=== PATIENT | male | born 1940 | race Caucasian/White ===

== ENCOUNTER 2017-06-25 18:04 | Inpatient (IN) ==
[~2017-06-25 18:04] MED LIST: PROMETHAZINE 25 MG/1 ML VIAL IM PRN
[2017-06-25] MEDS ORDERED: ACETAMINOPHEN 325 MG TABLET PO PRN (20:24)
[2017-06-25] MEDS ORDERED: ONDANSETRON 4 MG TABLET PO PRN (20:24)
[2017-06-25] MEDS ORDERED: diphenhydrAMINE 50 MG/1 ML VIAL IV PRN (20:24)
[2017-06-25] MEDS ORDERED: SODIUM CHLORIDE 0.9% 1,000 ML IV PRN (20:24)
[2017-06-25] MEDS ORDERED: ONDANSETRON 4 MG/2 ML VIAL IV PRN (20:24)
[2017-06-25] MEDS: SODIUM CHLORIDE 0.9% 1,000 ML IV SCH (21:36)
[2017-06-25] MEDS: HYDROmorphone 2 MG/1 ML VIAL IV PRN (21:52)
[2017-06-25] MEDS: DOCUSATE SODIUM 100 MG CAPSULE PO SCH (21:53)
[2017-06-25] MEDS: CARVEDILOL 25 MG TABLET PO SCH (21:53)
[2017-06-25] MEDS: FAMOTIDINE INJ 40 MG in SODIUM CHLORIDE 0.9% 100 ML IV SCH (21:53)
[2017-06-25 23:23] LABS: Amorphous Crystals,Urine Occasional /HPF (Few); Apearance,Urine CLOUDY (Clear); Bacteria,Urine Few /HPF (Few); Bilirubin,Urine Negative (Negative); Blood, Urine Large mg/dL (Negative); Glucose,Urine (UA) Negative (Negative); Ketones,Urine 5 mg/dL (Negative); Nitrite,Urine Negative (Negative); Protein,Urine 100 MG/DL; RBC,Urine 917 /HPF (0-4); Urine Color Amber (Yellow); Urine Specific Gravity 1.013 (1.001-1.035); Urine Urobilinogen < 2.0 EU/DL (0.2-1.0); WBC,Urine 26 /HPF (0-6)
[2017-06-26] MEDS: HYDROmorphone 2 MG/1 ML VIAL IV PRN ×4 (02:13→17:07)
[2017-06-26] MEDS: SODIUM CHLORIDE 0.9% 1,000 ML IV SCH ×6 (05:50→21:21)
[2017-06-26 05:53] LABS: Basophils # 0.1 10*3/uL (0.0-0.2); Basophils % 0.6 % (0.0-0.8); Eosinophils # 0.1 10*3/uL (0.0-0.87); Eosinophils % 1.4 % (0.00-10.9); Hematocrit 31.2 VOL% (42.0-52.0); Hemoglobin 10.7 GM/DL (14.0-18.0); Immature Granulocytes % 0.6 %; Immature Granulocytes Absolute 0.05 #; Lymphocytes # 3.4 10*3/uL (1.4-4.0); Lymphocytes % 37.4 % (21.2-54.2); Mean Corpuscular HGB Conc 34.3 GM/DL (32-36); Mean Corpuscular Hemoglobin 32 PG (27-34); Mean Corpuscular Volume 94.5 FL (87-102); Mean Platelet Volume 11.1 FL (9.6-12.0); Monocytes # 1.3 10*3/uL (0.11-0.8); Monocytes % 14.4 % (1.7-12.7); Neutrophils # 4.1 10*3/uL (1.4-7.4); Neutrophils % 45.6 % (38.7-73.9); Platelet Count 128 T/CUMM (130-400); Red Cell Distribution Width 14.1 % (9.3-17.3); White Blood Count 9.1 T/CUMM (4-12)
[2017-06-26 06:26] LABS: Calcium 7.8 MG/DL (8.5-10.1); Osmolality,Calculated 283.3 MOS/KG (273-304); Potassium 4.7 MMOL/L (3.5-5.1)
[2017-06-26] MEDS ORDERED: MAGNESIUM SULF RIDER 2 GM in PREMIX 1 EACH IV ONE (08:47)
[2017-06-26] MEDS ORDERED: MAGNESIUM SULF RIDER 50 ML IV ONE (08:56)
[2017-06-26] MEDS: CARVEDILOL 25 MG TABLET PO SCH ×2 (09:10→17:08)
[2017-06-26] MEDS: amLODIPine 5 MG TABLET PO SCH (09:10)
[2017-06-26] MEDS: DOCUSATE SODIUM 100 MG CAPSULE PO SCH ×2 (09:10→20:16)
[2017-06-26 13:00] LABS: Basophils # 0.1 10*3/uL (0.0-0.2); Basophils % 0.5 % (0.0-0.8); Eosinophils # 0.2 10*3/uL (0.0-0.87); Eosinophils % 2.1 % (0.00-10.9); Hematocrit 32.7 VOL% (42.0-52.0); Hemoglobin 10.9 GM/DL (14.0-18.0); Immature Granulocytes % 0.5 %; Immature Granulocytes Absolute 0.05 #; Lymphocytes # 2.9 10*3/uL (1.4-4.0); Lymphocytes % 29.7 % (21.2-54.2); Mean Corpuscular HGB Conc 33.3 GM/DL (32-36); Mean Corpuscular Hemoglobin 32 PG (27-34); Mean Corpuscular Volume 96.5 FL (87-102); Mean Platelet Volume 11.1 FL (9.6-12.0); Monocytes # 1.2 10*3/uL (0.11-0.8); Monocytes % 12.3 % (1.7-12.7); Neutrophils # 5.3 10*3/uL (1.4-7.4); Neutrophils % 54.9 % (38.7-73.9); Platelet Count 125 T/CUMM (130-400); Red Blood Count 3.39 MC/CUMM (3.8-5.5); Red Cell Distribution Width 14.4 % (9.3-17.3); White Blood Count 9.6 T/CUMM (4-12)
[2017-06-26] MEDS: FAMOTIDINE INJ 40 MG in SODIUM CHLORIDE 0.9% 100 ML IV SCH (20:17)
[2017-06-27] MEDS: HYDROmorphone 2 MG/1 ML VIAL IV PRN ×4 (02:18→19:40)
[2017-06-27] MEDS: SODIUM CHLORIDE 0.9% 1,000 ML IV SCH (05:37)
[2017-06-27 06:40] LABS: Basophils # 0.1 10*3/uL (0.0-0.2); Basophils % 0.6 % (0.0-0.8); Eosinophils # 0.3 10*3/uL (0.0-0.87); Eosinophils % 3.1 % (0.00-10.9); Hematocrit 30.8 VOL% (42.0-52.0); Hemoglobin 10.1 GM/DL (14.0-18.0); Immature Granulocytes % 0.4 %; Immature Granulocytes Absolute 0.03 #; Lymphocytes # 2.3 10*3/uL (1.4-4.0); Lymphocytes % 27.3 % (21.2-54.2); Mean Corpuscular HGB Conc 32.8 GM/DL (32-36); Mean Corpuscular Hemoglobin 32 PG (27-34); Mean Corpuscular Volume 96.6 FL (87-102); Mean Platelet Volume 10.9 FL (9.6-12.0); Monocytes # 1.2 10*3/uL (0.11-0.8); Monocytes % 13.8 % (1.7-12.7); Neutrophils # 4.6 10*3/uL (1.4-7.4); Neutrophils % 54.8 % (38.7-73.9); Platelet Count 127 T/CUMM (130-400); Red Blood Count 3.19 MC/CUMM (3.8-5.5); Red Cell Distribution Width 14.2 % (9.3-17.3); White Blood Count 8.4 T/CUMM (4-12)
[2017-06-27 07:07] LABS: Calcium 7.6 MG/DL (8.5-10.1); Potassium 4.2 MMOL/L (3.5-5.1)
[2017-06-27] MEDS: amLODIPine 5 MG TABLET PO SCH (08:37)
[2017-06-27] MEDS: DOCUSATE SODIUM 100 MG CAPSULE PO SCH ×2 (08:37→21:03)
[2017-06-27] MEDS: CARVEDILOL 25 MG TABLET PO SCH ×2 (08:37→17:47)
[2017-06-27] MEDS: FAMOTIDINE INJ 40 MG in SODIUM CHLORIDE 0.9% 100 ML IV SCH (21:07)
[2017-06-28] MEDS: HYDROmorphone 2 MG/1 ML VIAL IV PRN ×2 (01:13→05:05)
[2017-06-28 05:34] LABS: Basophils # 0.1 10*3/uL (0.0-0.2); Basophils % 0.6 % (0.0-0.8); Eosinophils # 0.2 10*3/uL (0.0-0.87); Eosinophils % 2.3 % (0.00-10.9); Hemoglobin 10.6 GM/DL (14.0-18.0); Immature Granulocytes % 0.6 %; Immature Granulocytes Absolute 0.06 #; Lymphocytes # 2.2 10*3/uL (1.4-4.0); Mean Corpuscular HGB Conc 34.2 GM/DL (32-36); Mean Corpuscular Hemoglobin 32 PG (27-34); Mean Corpuscular Volume 94.5 FL (87-102); Mean Platelet Volume 11.3 FL (9.6-12.0); Monocytes # 1.5 10*3/uL (0.11-0.8); Monocytes % 14.6 % (1.7-12.7); Neutrophils % 59.9 % (38.7-73.9); Platelet Count 151 T/CUMM (130-400); Red Blood Count 3.28 MC/CUMM (3.8-5.5); Red Cell Distribution Width 13.8 % (9.3-17.3)
[2017-06-28 07:17] VITALS: BP 145/75
[2017-06-28] MEDS: DOCUSATE SODIUM 100 MG CAPSULE PO SCH (08:25)
[2017-06-28] MEDS: CARVEDILOL 25 MG TABLET PO SCH (08:25)
[2017-06-28] MEDS: amLODIPine 5 MG TABLET PO SCH (08:25)
== END 2017-06-28 11:06 | disposition home or self-care (01) | DRG 920 ==
LOC: EDUNIT# → EDBD → N.ED 18:04 → N.EDINP 19:08 → N.ICU 19:29 → N.5E 06-26 10:53
PROVIDERS: ADMIT Urology; ATTEND Urology

== ENCOUNTER 2017-07-05 12:19 | Observation (INO) ==
[2017-07-05] MEDS ORDERED: ONDANSETRON 4 MG/2 ML VIAL ONE (13:14)
[2017-07-05] MEDS ORDERED: HYDROmorphone 2 MG/1 ML VIAL ONE ×2 (13:14→15:13)
[2017-07-05] MEDS ORDERED: HYDROmorphone 2 MG/1 ML VIAL IV STA ×2 (13:22→15:25)
[2017-07-05] MEDS ORDERED: ONDANSETRON 4 MG/2 ML VIAL IV STA (13:22)
[2017-07-05] MEDS ORDERED: SODIUM CHLORIDE 0.9% 500 ML IV STA (13:36)
[2017-07-05 14:20] LABS: Basophils # 0.1 10*3/uL (0.0-0.2); Basophils % 0.5 % (0.0-0.8); Eosinophils # 0.3 10*3/uL (0.0-0.87); Eosinophils % 2.5 % (0.00-10.9); Hematocrit 34.1 VOL% (42.0-52.0); Hemoglobin 11.4 GM/DL (14.0-18.0); Immature Granulocytes % 1.6 %; Immature Granulocytes Absolute 0.17 #; Lymphocytes # 1.9 10*3/uL (1.4-4.0); Lymphocytes % 18.7 % (21.2-54.2); Mean Corpuscular HGB Conc 33.4 GM/DL (32-36); Mean Corpuscular Hemoglobin 31 PG (27-34); Mean Corpuscular Volume 93.9 FL (87-102); Mean Platelet Volume 10.1 FL (9.6-12.0); Monocytes # 1.1 10*3/uL (0.11-0.8); Monocytes % 10.3 % (1.7-12.7); Neutrophils # 6.9 10*3/uL (1.4-7.4); Neutrophils % 66.4 % (38.7-73.9); Platelet Count 369 T/CUMM (130-400); Red Blood Count 3.63 MC/CUMM (3.8-5.5); Red Cell Distribution Width 13.7 % (9.3-17.3); White Blood Count 10.3 T/CUMM (4-12)
[2017-07-05 14:28] LABS: Albumin 3.2 G/DL (3.4-5.0); Bilirubin,Total 1.2 MG/DL (0.2-1.0); Calcium 8.7 MG/DL (8.5-10.1); Osmolality,Calculated 274.8 MOS/KG (273-304); Potassium 3.5 MMOL/L (3.5-5.1); Total Protein 7.1 G/DL (6.4-8.3)
[2017-07-05 15:50] LABS: Apearance,Urine CLEAR (Clear); Bilirubin,Urine Negative (Negative); Blood, Urine Large mg/dL (Negative); Glucose,Urine (UA) Negative (Negative); Hyaline Casts,Urine 1 /LPF (0-3); Ketones,Urine 5 mg/dL (Negative); Mucus,Urine Occasional /LPF (Occasional); Nitrite,Urine Negative (Negative); Protein,Urine 30 MG/DL; RBC,Urine 67 /HPF (0-4); Squamous Epithelial Cell,Urine Occasional /HPF (0-10); Urine Color Yellow (Yellow); Urine Specific Gravity 1.011 (1.001-1.035); Urine Urobilinogen < 2.0 EU/DL (0.2-1.0); WBC,Urine 2 /HPF (0-6)
[2017-07-05] MEDS ORDERED: ONDANSETRON 4 MG/2 ML VIAL IV PRN (16:47)
[2017-07-05] MEDS ORDERED: PROMETHAZINE 25 MG/1 ML VIAL IM PRN (16:47)
[2017-07-05] MEDS ORDERED: ZALEPLON 5 MG CAPSULE PO PRN (16:47)
[2017-07-05] MEDS ORDERED: ACETAMINOPHEN 325 MG TABLET PO PRN (16:47)
[2017-07-05] MEDS ORDERED: HYDROmorphone 2 MG/1 ML VIAL IV PRN (16:47)
[2017-07-05] MEDS: SODIUM CHLORIDE 0.9% 1,000 ML IV SCH (17:39)
[2017-07-05] MEDS ORDERED: NALOXONE 0.4 MG/ML VIAL IV PRN ×2 (18:27→18:35)
[2017-07-05] MEDS ORDERED: HYDROmorphone PCA 30 MG/30 ML SYRINGE IV SCH (18:30)
[2017-07-05] MEDS: MORPHINE PCA 30 MG/30 ML SYRINGE IV SCH (20:19)
[2017-07-05] MEDS: TAMSULOSIN 0.4 MG CAPSULE PO SCH (20:30)
[2017-07-06] MEDS: MORPHINE PCA 30 MG/30 ML SYRINGE IV SCH ×2 (00:46→05:47)
[2017-07-06] MEDS: SODIUM CHLORIDE 0.9% 1,000 ML IV SCH ×2 (05:47→16:17)
[2017-07-06] MEDS ORDERED: cefTRIAXone 1,000 MG in SYRINGE 1 EACH IV ONE (06:00)
[2017-07-06] MEDS: TAMSULOSIN 0.4 MG CAPSULE PO SCH ×3 (08:53→21:43)
[2017-07-06] MEDS ORDERED: LIDOCAINE 2% TOP JELLY 20 ML VIAL INTRAURETH ONE (09:06)
[2017-07-06] MEDS ORDERED: MEPERIDINE 50 MG/1 ML VIAL IM PRN (10:46)
[2017-07-06] MEDS ORDERED: oxyCODONE/ACETAMINOPHEN 5-325 MG TABLET PO PRN (10:50)
[2017-07-06] MEDS ORDERED: PROPOFOL 200 MG/20 ML VIAL IV ONE (11:07)
[2017-07-06] MEDS ORDERED: SEVOFLURANE 1 UNIT/15 MINUTE INH ONE (11:08)
[2017-07-06] MEDS ORDERED: fentaNYL 100 MCG/2 ML VIAL ONE (11:08)
[2017-07-06] MEDS ORDERED: MIDAZOLAM 2 MG/2 ML VIAL ONE (11:08)
[2017-07-06] MEDS ORDERED: PHENYLEPHRINE 1 MG/10 ML SYRINGE IV ONE (11:09)
[2017-07-06] MEDS ORDERED: PHENYLEPHRINE 10 MG/1 ML VIAL IV ONE (11:09)
[2017-07-06] MEDS ORDERED: SODIUM CHLORIDE 0.9% 100 ML IV ONE (11:09)
[2017-07-06] MEDS: oxyCODONE/ACETAMINOPHEN 5-325 MG TABLET PO PRN ×2 (16:16→21:44)
[2017-07-06] MEDS: PANTOPRAZOLE 40 MG TABLET PO SCH (23:03)
[2017-07-07] MEDS: oxyCODONE/ACETAMINOPHEN 5-325 MG TABLET PO PRN ×2 (03:21→08:03)
[2017-07-07] MEDS: SODIUM CHLORIDE 0.9% 1,000 ML IV SCH ×2 (05:21)
[2017-07-07] MEDS: TAMSULOSIN 0.4 MG CAPSULE PO SCH (08:02)
[2017-07-07] MEDS: PANTOPRAZOLE 40 MG TABLET PO SCH (08:03)
[2017-07-07] MEDS ORDERED: CETIRIZINE 10 MG TABLET PO SCH (09:00)
[2017-07-07] MEDS ORDERED: amLODIPine 5 MG TABLET PO SCH (09:00)
[2017-07-07] MEDS ORDERED: CARVEDILOL 25 MG TABLET PO SCH (09:00)
[2017-07-07 12:10] VITALS: BP 122/80
[2017-07-07] MEDS ORDERED: ATORVASTATIN 40 MG TABLET PO SCH (21:00)
== END 2017-07-07 12:59 | disposition home or self-care (01) ==
LOC: EDBD → EDUNIT# → N.ED 12:19 → N.EDINP 12:19 → N.5E 16:40
PROVIDERS: ADMIT Urology; ATTEND Urology